=== PATIENT | male | born 1950 | race Caucasian/White ===

== ENCOUNTER 2023-06-10 13:13 | Outpatient (REF) | payer OTHER, SELFPAY ==
[2023-06-10 13:54] LABS: Basophils Percent Auto 0.6 % (0.2-2.0); Eosinophils Absolute Auto 0.5 10^3/uL (0.0-0.7); Eosinophils Percent Auto 7.1 % (0.9-7.0); Hematocrit 37.2 % (42.0-54.0); Hemoglobin 11.7 g/dL (14.0-18.0); Immature Granulocytes Abs Auto 0.02 10^3/uL (0.00-0.03); Immature Granulocytes Pct Auto 0.3 % (0.0-0.5); Lymphocytes Absolute Auto 1.9 10^3/uL (1.2-3.8); Lymphocytes Percent Auto 28.5 % (20.5-60.0); Mean Corpuscular HGB Conc 31.5 g/dL (29.9-35.2); Mean Corpuscular Hemoglobin 33.7 pg (25.9-34.0); Mean Corpuscular Volume 107.2 fL (80.0-94.0); Mean Platelet Volume 10.2 fL (9.5-13.5); Monocytes Absolute Auto 0.7 10^3/uL (0.3-0.8); Neutrophils Absolute Auto 3.5 10^3/uL (1.4-6.5); Neutrophils Percent Auto 53.5 % (43.0-75.0); Platelet Count 249 10^3/uL (150-450); Red Blood Count 3.47 10^6/uL (4.70-6.10); Red Cell Distribution Width 13.1 % (11.0-15.0); White Blood Count 6.5 10^3/uL (4.0-11.0)
[2023-06-10 14:35] LABS: Alanine Aminotransferase 9 U/L (16-63); Albumin Globulin Ratio 0.8; Albumin Level 3.4 g/dL (3.4-5.0); Anion Gap 11.2; Aspartate Amino Transferase 19 U/L (15-37); BUN Creatinine Ratio 13.6; Bilirubin Total 0.2 mg/dL (0.2-1.0); Calcium 9.4 mg/dL (8.5-10.1); Carbon Dioxide 28.4 mmol/L (21.0-32.0); Chloride 104 mmol/L (98-107); Estimated Average Glucose 100 mg/dL; Estimated GFR (African America >60 (>=60); Estimated GFR (Non-African Ame 57 (>=60); Globulin 4.1 g/dL; Glucose 141 mg/dL (74-106); Glycohemoglobin A1C 5.1 % (4.5-6.2); Potassium 3.6 mmol/L (3.5-5.1); Sodium 140 mmol/L (136-145); Total Protein 7.5 g/dL (6.4-8.2)
[2023-06-10 14:48] LABS: Prostate Specific Antigen Scrn 0.49 ng/mL (<=4.00)
[2023-06-10 15:27] LABS: Alkaline Phosphatase 59 U/L (46-116)
== END 2023-06-10 13:14 | disposition home or self-care (01) ==
LOC: LAB 13:13
PROVIDERS: Visit Provider Family Medicine
DX: Z12.5 Encounter for screening for malignant neoplasm of prostate (principal); E11.69 Type 2 diabetes mellitus with other specified complication; E78.5 Hyperlipidemia, unspecified; Z86.39 Personal history of other endocrine, nutritional and metabolic disease
CPT/HCPCS: 36415; 80053; 83036; 85025; G0103